=== PATIENT | male | born 1980 | race Caucasian/White ===

== ENCOUNTER 2025-04-22 09:36 | Outpatient (CLI) | payer OTHER, SELFPAY ==
--- NOTE | 2025-04-22 09:58 | ECG_ITS ---
Test Date: 2025-04-22 10:10:16 Measurements Intervals Christmas Rate: 72 P: 35 SC: 125 QRS: 48 QRSD: 95 T: 38 QT: 338 QTc: 371 Interpretive Statements SINUS RHYTHM MINIMAL Q WAVES- INFERIOR LEADS BASELINE ARTIFACT- III, AVR, AVL, V1-V6 BORDERLINE ECG No previous ECG available for comparison Electronically Signed On 04-22-2025 14:46:10 CDT by Niall Greene D.O.
[2025-04-22 10:30] LABS: Blood Urea Nitrogen 16 mg/dL (9-20); Estimated Glomerular Filt Rate > 60; Sodium 138 mmol/L (137-145)
[2025-04-22 10:42] LABS: Anion Gap 5 mmol/L (4-12); Calcium 9.2 mg/dL (8.4-10.2); Carbon Dioxide 27 mmol/L (22-30); Chloride 106 mmol/L (98-107); Glucose 88 mg/dL (65-110); Potassium 3.9 mmol/L (3.4-5.0)
== END 2025-04-22 09:37 | disposition home or self-care (01) ==
PROVIDERS: PCP Internal Medicine; Visit Provider Anesthesiology
DX: E11.9 Type 2 diabetes mellitus without complications (principal); E78.5 Hyperlipidemia, unspecified; Z01.818 Encounter for other preprocedural examination
CPT/HCPCS: 36415; 80048; 93005

== ENCOUNTER 2025-05-01 00:30 | Day surgery (SDC) | payer OTHER, SELFPAY ==
[2025-04-20 08:18] VITALS: BMI 29.2
--- NOTE | 2025-04-20 08:26 | PC.NURSE ---
Report to the Outpatient Waiting Room, entrance under the green pavilion located off [facility], at time _0600_ on date _[id number]_. Planned Procedure Time: _0730_.? Time changes happen often and if your time is changed the preop area will call you the afternoon before. - You and your visitor will be asked to self-screen and do not enter if you have any COVID symptoms. Please call surgeon if you need to reschedule. - A mask is optional within the hospital at this time. Patients may have clear liquids (water, carbonated beverages, clear teas, apple juice) until 3 hours prior to surgery with a maximum of 20 ounces. - No food from midnight until time of surgery and no smoking, or chewing tobacco (or any form of nicotine). No chewing gum, candy or mints. Take only the following medications with a SIP of water on the morning of surgery: ___None____ DO NOT STOP ANY OF YOUR OTHER PRESCRIPTION MEDICATIONS PRIOR TO SURGERY EXCEPT THE FOLLOWING Hold all vitamins and supplements for 3 days per anesthesiologist. Medications to discontinue per physician Date to take last [phone]___ Please no make-up, nail lao, hairspray, perfume, deodorant, or body powder the day of surgery.? No jewelry (including any body piercings) or valuables the day of surgery, leave them at home.? Please take a shower or bath the night before, or the morning of, surgery with an antibacterial soap.? Wear comfortable, loose fitting clothing.? - Jewelry must be removed prior to entering the operating room.? Rings and piercings that are not removed may be cut off. - The hospital will not accept responsibility for valuables.? - Please leave all valuables, including medications, at home the day of surgery. If you are going home after surgery, a licensed wheelchair van driver must drive you home.? - NO public transportation without another adult if you receive anesthesia. - We recommend that an adult stay with you for 24 hours following discharge. - We also recommend that you do not drive, make important decision, drink alcoholic beverages, or take any drugs that were not prescribed by your health care provider for at least 24 hours after your discharge time. Follow any additional instructions given to you from your surgeon. Telephone instructions given to __Chris___and asked if any additional questions and then verbalized understanding. Patient advised to call surgeon office or pre surgery nurse liaison [phone] if any additional questions.
[2025-05-01] VITALS (15 sets, daily range): BP systolic 138–179; BP diastolic 93–114; PULSE 67–98; RESP 12–18; TEMP 36.1–37; O2SAT 94–100
[2025-05-01] MEDS: LACTATED RINGERS 1,000 ML 30 ML IV CONT ×2 (06:20→08:27)
[2025-05-01] MEDS: ACETAMINOPHEN 500 MG TABLET 1000 MG PO (06:25)
[2025-05-01] MEDS: OXYMETAZOLINE HCL 0.05% NAS 15 ML BTL (*BKC) 1 SPRAY NASAL (06:30)
--- NOTE | 2025-05-01 07:00 | P.PNAN_ITS ---
Anes - Initial Pre Proc Eval Procedure: Operation Date: 05/01/25 07:30 Proposed Procedures p Bilateral Turbinate Reduction with Tara Bullosa Resection - Jimi Finley MD s Septoplasty - Jimi Finley MD Date/Time: 05/01/25 07:00 Surgeon: Jimi Finley MD Pre Op Diagnosis: deviated septum, turbinate hypertrophy Patient Data Age: 45 Gender: M Height: 1.83 m Weight: 97.7 kg Allergies Allergy/AdvReac Type Severity Reaction Status Date / Time No Known Allergies Allergy Verified 05/01/25 07:05 Home Medications ?Medication ?Instructions ?Recorded ?Confirmed ?Type atorvastatin 10 mg tablet 10 mg PO DAILY 04/20/25 04/20/25 History multivitamin (Daily Multi-Vitamin 1 tablet PO DAILY 04/20/25 04/20/25 History tablet) semaglutide 2 mg/dose (8 mg/3 mL) 2 mg subcut WEEKLY 04/20/25 04/20/25 History subcutaneous pen injector (Ozempic) Laboratory Tests 05/01/25 06:25 POC Capillary Glucose 105 mg/dl (65-105) Patient hx anesthesia problems: none Family hx anesthesia problems: none Results Review: All pre-operative results and documents have been reviewed as part of the pre- operative evaluation. [facility] Past Medical History Medical History (Updated 05/01/25 @ 07:01 by Wicho Hightower DO) Depression Hyperlipidemia Diabetes type 2, controlled Social History Social History Tobacco type: e-cigarettes/vaping Alcohol intake: current Living arrangements: with family Spiritual care concerns: No Anes - Eval Final PreProcedure Day of Procedure 05/01/25 07:00 Patient weight: overweight Heart: regular rate and rhythm Lungs: clear to auscultation Airway: Mallampati scale class 1 Neurological: alert and oriented Last oral intake: >/= 8 hours ASA classification: III Emergent: no Anesthetic plan: proceed Anesthesia type and monitoring: general ETT and standard monitoring Results Review: All pre-operative results and documents have been reviewed as part of the pre- operative evaluation. Informed Consent: The patient's anesthetic plan and its attendant risks and benefits were discussed with the patient/family/POA. Questions were solicited and answers provided to the satisfaction of the patient/family/POA.
--- NOTE | 2025-05-01 07:13 | PM.IMHP ---
H&P: HPI History of Present Illness Date/Time: 05/01/25 07:13 Chief Complaint: deviated septum Narrative: deviated septum Review of Systems Review of Systems: All systems reviewed & are unremarkable except as noted in HPI and below PMFSH Past Medical History Medical History Depression Hyperlipidemia Diabetes type 2, controlled Social History Social History Tobacco type: e-cigarettes/vaping Alcohol intake: current Living arrangements: with family Spiritual care concerns: No Meds Home Medications and Allergies Home Medications ?Medication ?Instructions ?Recorded ?Confirmed ?Type atorvastatin 10 mg tablet 10 mg PO DAILY 04/20/25 05/01/25 History multivitamin (Daily Multi-Vitamin 1 tablet PO DAILY 04/20/25 05/01/25 History tablet) semaglutide 2 mg/dose (8 mg/3 mL) 2 mg subcut WEEKLY 04/20/25 04/20/25 History subcutaneous pen injector (Ozempic) Allergies Allergy/AdvReac Type Severity Reaction Status Date / Time No Known Allergies Allergy Verified 05/01/25 07:05 Vital Signs Vital Signs - 24 hr 05/01/25 06:07 Temperature 37.0 C Pulse Rate 67 Respiratory Rate 16 Blood Pressure 138/93 H Pulse Oximetry 98 Oxygen Delivery Room Air Exam Narrative: right septal deviation, right nehemias, rest of exam wnl Assessment and Plan Assessment and plan (1) Deviated septum: Code(s): J34.2 - Deviated nasal septum Status: Acute Plan Here for septo/turb and right nehemias bullosectomy. /r/b/a reviewed, all questions answered, pt understands and agrees to proceed, refer to outp tH&P for additional detail.
--- NOTE | 2025-05-01 07:15 | WPDHPUPDATE1 ---
History and Physical Update Update Date/Time: 05/01/25 07:15 History and Physical has been reviewed, including an updated exam of the patient. There are NO changes in the patient's condition. Risks, benefits, and alternatives have been discussed and questions answered. Patient agrees to proceed with procedure.
[2025-05-01] MEDS: ceFAZolin 2 GM in SODIUM CHLORIDE 0.9% IV 50 ML 100 ML IVPB (07:42)
[2025-05-01] MEDS: LIDO 1%/EPINEPHRINE 1:100,000 50 ML VIAL INFILTRATE (08:05)
--- NOTE | 2025-05-01 08:28 | P.OP_ITS ---
Procedure Note - Detailed Date of Procedure 05/01/25 Pre-op Diagnosis deviated septum, turbinate hypertrophy, right nehemias bullosa Post-op Diagnosis Same Procedure Performed Septoplasty, turbinoplasty, right nehemias bullosectomy Surgeon Jimi Finley MD Anesthesia General Indications Nasal dyspnea Findings Left septal deviation, holly splints bilaterally Description of Procedure After obtaining informed consent and proper site verification the patient was brought to the operating room and placed on the operating table in the supine position. They were placed under general endotracheal anesthesia by the [facility] provider. The patient was then draped in standard fashion for septoplasty and turbinoplasty. A timeout was performed and the correct patient and procedure were verified. The nasal cavity was injected with 1% lidocaine with 1-100,000 epinephrine and packed with afrin-soaked cottonoid pledgets. ? Attention was then directed to the nasal septum. A hemitransfixion incision was made in the left caudal septum and a mucoperichondrial flap was elevated in the usual fashion. The flap was elevated under endoscopic visualization and the remainder of the case was performed with endoscopic assistance. Using a D- knife, an incision was made through the cartilaginous septum with care to preserve the appropriate caudal and dorsal ?L-strut? of cartilage. The cartilage was then disarticulated from the bony-cartilaginous junction and the deviated cartilage was removed. Further deviated bone and cartilage was removed from the maxillary crest and posterior bony septum with care to avoid injury to the mucoperichondrial flap using a combination of dissection and [place]- Hernandez forceps. Once this was completed, the hemitransfixion incision was closed using simple interrupted 4-0 chromic suture. A quilting stitch to reapproximate the mucoperichondrial flaps was then placed using 4-0 plain gut suture on a Magnus needle. Next, the right nehemias bullosa was addressed using freer elevator to crush the middle turbinate and medialize it. ? Next attention was directed to the turbinates. Using a 0? telescope and 2mm turbinate blade microdebrider, a stab incision was made in the anterior face of the turbinate and dissection was carried posterior to perform submucosal resection. Next the turbinate was outfractured using a blunt instrument. A similar procedure was then performed on the right-hand side without difficulty. Holly splints covered in mupirocin ointment were placed in the nasal cavity and secured to the membranous septum using a 3-0 Prolene suture. ?The patient was awakened from general anesthesia extubated in the operating room, and transported to the recovery room in stable condition without complication. Estimated Blood Loss 10 Drains No Packing Yes (holly splints bilateral) Pathology None sent Complications No immediate complications Condition Stable Disposition PACU
== END 2025-05-01 11:42 | disposition home or self-care (01) ==
PROVIDERS: PCP Internal Medicine; Visit Provider Otolaryngology
PROC: (CPT 30140; principal; 2025-05-01 07:30)
PROC: (CPT 30520; 2025-05-01 07:30)
DX: J34.2 Deviated nasal septum (principal); J34.3 Hypertrophy of nasal turbinates; E78.5 Hyperlipidemia, unspecified; E11.9 Type 2 diabetes mellitus without complications; F32.A Depression, unspecified; F17.290 Nicotine dependence, other tobacco product, uncomplicated; Z79.85 Long-term (current) use of injectable non-insulin antidiabetic drugs
CPT/HCPCS: 30140; 30520; 31240; 82948; J0690; A9270; J0330; J0360; J1100; J2003; J2004; J2250; J2405; J2704; J7120